=== PATIENT | female | born 1990 | race Caucasian/White ===

== ENCOUNTER 2019-01-14 08:20 | Emergency (ER) | payer MEDICAID, BC ==
[~2019-01-14] VITALS: Ht 157.5 cm; Wt 63.5 kg
[2019-01-14 08:54] LABS: Urine Bacteria NONE SEEN /hpf (None Seen); Urine Blood Negative /uL (Negative); Urine Mucus FEW (None Seen); Urine Specific Gravity 1.022 (1.001-1.035); Urine WBC 2 /hpf (0 - 5)
[2019-01-14 08:57] LABS: Basophils # (auto) 0 uL; Basophils % (auto) 0.7 % (0.0-2.0); Eosinophils # (auto) 0 uL; Eosinophils % (auto) 0.3 % (0.0-7.0); Hematocrit 42.5 % (36.0-46.0); Hemoglobin 14.6 g/dL (12.2-16.2); Lymphocytes # (auto) 0.6 uL; Lymphocytes % (auto) 17.5 % (10.0-50.0); Mean Corpuscular Hemoglobin 32.4 pg (28.0-32.0); Mean Corpuscular Hgb Conc. 34.4 g/dL (32.0-36.0); Monocytes # (auto) 0.4 uL; Monocytes % (auto) 11.3 % (0.0-12.0); Neutrophils # (auto) 2.4 uL; Neutrophils % (auto) 70.2 % (37.0-80.0); Nucleated Red Blood Cells % 0.1 %; Platelet Count (auto) 193 10^3/uL (140-450); Red Blood Cells 4.52 10^6/uL (4.0-5.20); Red Cell Distribution Width 13.5 % (11.8-14.3); White Blood Cell 3.5 10^3/uL (4.4-10.8)
[2019-01-14 09:16] LABS: Albumin 3.9 g/dL (3.4-5.0); Anion Gap 6 (5-15); Blood Urea Nitrogen 14 mg/dL (7-18); Carbon Dioxide 25 mmol/L (21-32); Chloride 110 mmol/L (98-107); Glucose 83 mg/dL (74-106); Potassium 3.9 mmol/L (3.5-5.1); Sodium 141 mmol/L (136-145)
[2019-01-14 09:22] LABS: Alanine Aminotransferase 188 U/L (13-56); Alkaline Phosphatase 160 U/L (45-117); Aspartate Aminotransferase 244 U/L (15-37); BUN/Creatinine Ratio 17.3; Bilirubin, Total 0.5 mg/dL (0.2-1.0); GFR African American 107 mL/min; GFR Non-African American 88 mL/min; Total Protein 7.8 g/dL (6.4-8.2)
[2019-01-14 09:26] LABS: INR 0.97 (0.9-1.15); Partial Thromboplastin Time 27.6 sec (23.64-32.05)
[2019-01-14 11:53] VITALS: BP 122/68
== END 2019-01-14 11:59 | disposition home or self-care (01) ==
LOC: ER 08:21
DX: R07.89 Other chest pain (principal); R94.5 Abnormal results of liver function studies; F17.210 Nicotine dependence, cigarettes, uncomplicated
CPT/HCPCS: 36415; 71046; 80053; 81001; 81025; 83880; 84484; 85025; 85610; 85730; 93005